=== PATIENT | male | born 1995 | race Caucasian/White ===

== ENCOUNTER 2020-01-21 11:14 | Emergency (ER) | payer OTHER ==
[~2020-01-21] VITALS: Ht 180.3 cm; Wt 90.7 kg
[~2020-01-21 11:14] MED LIST: CEPH500 PO; CRUTCH3 XX; HYDACE5 PO; Norco 10-325 T1 EACH PO; Norco 5-325 Ta1 EACH PO; Zofran Odt8 MG SL
== END 2020-01-21 13:08 | disposition home or self-care (01) ==
LOC: ER 11:14
DX: S90.31XA Contusion of right foot, initial encounter (principal); F17.220 Nicotine dependence, chewing tobacco, uncomplicated; X58.XXXA Exposure to other specified factors, initial encounter
CPT/HCPCS: 73630; 99283-25

== ENCOUNTER 2022-08-07 16:09 | Emergency (ER) | payer OTHER ==
[~2022-08-07] VITALS: Ht 182.9 cm; Wt 86.2 kg
[2022-08-07 16:55] LABS: BASOPHILS ABSOLUTE AUTO 0.11 K/mm3 (0.00-0.23); BASOPHILS PERCENT AUTO 1 % (0-2); EOSINOPHILS ABSOLUTE AUTO 0.65 K/mm3 (0.00-0.68); EOSINOPHILS PERCENT AUTO 5 % (0-6); Hematocrit 46.8 % (37.0-53.0); Hemoglobin 16.1 g/dL (13.5-17.5); IMMATURE GRAN ABSOLUTE AUTO 0.07 K/mm3 (0.00-0.10); IMMATURE GRAN PERCENT AUTO 1 % (0-1); LYMPHOCYTES ABSOLUTE AUTO 2.79 K/mm3 (0.84-5.20); LYMPHOCYTES PERCENT AUTO 23 % (21-46); MONOCYTES ABSOLUTE AUTO 1.12 K/mm3 (0.16-1.47); MONOCYTES PERCENT AUTO 9 % (4-13); Mean Corpuscular HGB 30.3 pg (26.0-34.0); Mean Corpuscular HGB Conc 34.4 g/dL (31.5-36.5); Mean Corpuscular Volume 88 fL (80-100); Mean Platelet Volume 9.3 fL (9.1-12.4); NEUTROPHILS ABSOLUTE AUTO 7.66 K/mm3 (1.96-9.15); NEUTROPHILS PERCENT AUTO 62 % (41-73); Platelet Count 254 K/mm3 (150-400); RDW Coefficient Variation 12.8 % (11.7-14.2); RDW Standard Deviation 41.5 fL (35.1-46.3); Red Blood Cell Count 5.31 M/mm3 (4.30-5.90)
[2022-08-07 17:25] LABS: Albumin, Blood 3.7 g/dL (3.4-5.0); Albumin/Globulin Ratio 1.2 (0.8-1.8); Bilirubin, Total 0.2 mg/dL (0.1-1.0); Bun/Creatinine Ratio 16.5 (12.0-20.0); Creatinine, Blood 0.79 mg/dL (0.60-1.20); Globulin, Blood 3.1 g/dL (2.2-4.0); Potassium, Blood 4.1 mmol/L (3.5-5.5); Total Protein, Blood 6.8 g/dL (6.4-8.2)
== END 2022-08-07 19:31 | disposition home or self-care (01) ==
LOC: ER 16:09
PROVIDERS: Physician Assistant
DX: R10.31 Right lower quadrant pain (principal); D72.829 Elevated white blood cell count, unspecified; F17.210 Nicotine dependence, cigarettes, uncomplicated; F17.220 Nicotine dependence, chewing tobacco, uncomplicated
CPT/HCPCS: 36415; 74177; 80053; 83690; 85025; Q9967

== ENCOUNTER 2023-11-13 05:25 | Emergency (ER) | payer OTHER ==
[~2023-11-13] VITALS: Ht 182.9 cm; Wt 81.7 kg
[2023-11-13 07:17] VITALS: BP 146/78
== END 2023-11-13 07:17 | disposition home or self-care (01) ==
LOC: ER 05:25
DX: S39.012A Strain of muscle, fascia and tendon of lower back, initial encounter (principal); F17.220 Nicotine dependence, chewing tobacco, uncomplicated; F17.200 Nicotine dependence, unspecified, uncomplicated; V47.5XXA Car driver injured in collision with fixed or stationary object in traffic accident, initial encounter; Y92.410 Unspecified street and highway as the place of occurrence of the external cause
CPT/HCPCS: 72100; 99283-25

== ENCOUNTER 2024-06-26 22:24 | Emergency (ER) | payer OTHER ==
[~2024-06-26] VITALS: Ht 182.9 cm; Wt 83.9 kg
[2024-06-26 22:50] LABS: BASOPHILS ABSOLUTE AUTO 0.11 K/mm3 (0.00-0.23); BASOPHILS PERCENT AUTO 1 % (0-2); EOSINOPHILS ABSOLUTE AUTO 0.51 K/mm3 (0.00-0.68); EOSINOPHILS PERCENT AUTO 4 % (0-6); Hematocrit 46.4 % (37.0-53.0); IMMATURE GRAN ABSOLUTE AUTO 0.03 K/mm3 (0.00-0.10); IMMATURE GRAN PERCENT AUTO 0 % (0-1); LYMPHOCYTES ABSOLUTE AUTO 3.24 K/mm3 (0.84-5.20); LYMPHOCYTES PERCENT AUTO 27 % (21-46); MONOCYTES ABSOLUTE AUTO 1.12 K/mm3 (0.16-1.47); MONOCYTES PERCENT AUTO 9 % (4-13); Mean Corpuscular HGB 29.7 pg (26.0-34.0); Mean Corpuscular HGB Conc 34.5 g/dL (31.5-36.5); Mean Corpuscular Volume 86 fL (80-100); Mean Platelet Volume 8.9 fL (9.1-12.4); NEUTROPHILS ABSOLUTE AUTO 6.99 K/mm3 (1.96-9.15); NEUTROPHILS PERCENT AUTO 58 % (41-73); Platelet Count 299 K/mm3 (150-400); RDW Coefficient Variation 12.7 % (11.7-14.2); RDW Standard Deviation 39.8 fL (35.1-46.3); Red Blood Cell Count 5.39 M/mm3 (4.30-5.90)
[2024-06-26 23:12] LABS: Albumin, Blood 3.8 g/dL (3.4-5.0); Albumin/Globulin Ratio 1.2 (0.8-1.8); Bilirubin, Total 0.7 mg/dL (0.1-1.0); Calcium, Blood 8.4 mg/dL (8.5-10.1); Creatinine, Blood 0.9 mg/dL (0.60-1.20); Globulin, Blood 3.1 g/dL (2.2-4.0); Potassium, Blood 3.9 mmol/L (3.5-5.5); Total Protein, Blood 6.9 g/dL (6.4-8.2)
[2024-06-27 02:00] VITALS: BP 127/81
[2024-06-27] MEDS ORDERED: NS 1,000 ML IV SCH (02:25)
[2024-06-27 03:22] LABS: Source, Urine Voided
[2024-06-27 03:35] LABS: Bilirubin, Urine Neg (Neg); Blood, Urine Neg (Neg); Glucose Qualitative, Urine Neg (Neg); Ketones, Urine Neg (Neg); Leukocyte Esterase, Urine 1+ (Neg); Nitrite, Urine Neg (Neg); Protein, Urine 1+ (Neg); Specific Gravity, Urine 1.015 (1.003-1.022); Urobilinogen, Urine 2+ (Normal); pH, Urine 6.5 (5.0-8.0)
[2024-06-27 03:46] LABS: Appearance, Urine Clear (Clear); Color, Urine Yellow (P-Yellow)
[2024-06-27 03:47] LABS: Bacteria Mod /hpf; Red Blood Cells, Urine 0-2 /hpf (0-2); Squamous Epithelial Cells Few /hpf (Few); White Blood Cells, Urine 0-2 /hpf (0-5)
== END 2024-06-27 03:55 | disposition home or self-care (01) ==
LOC: ER 22:24
PROVIDERS: Physician Assistant
DX: K40.90 Unilateral inguinal hernia, without obstruction or gangrene, not specified as recurrent (principal); F17.220 Nicotine dependence, chewing tobacco, uncomplicated
CPT/HCPCS: 76857; 80053; 81001; 85025; 87086; 99284-25; J7030

== ENCOUNTER 2024-07-22 14:55 | Observation (INO) | payer OTHER ==
[~2024-07-22] VITALS: Ht 180.3 cm; Wt 80.1 kg
[2024-07-22 15:28] LABS: BASOPHILS ABSOLUTE AUTO 0.16 K/mm3 (0.00-0.23); BASOPHILS PERCENT AUTO 1 % (0-2); EOSINOPHILS ABSOLUTE AUTO 0.63 K/mm3 (0.00-0.68); EOSINOPHILS PERCENT AUTO 5 % (0-6); Hematocrit 45.4 % (37.0-53.0); Hemoglobin 15.6 g/dL (13.5-17.5); IMMATURE GRAN ABSOLUTE AUTO 0.21 K/mm3 (0.00-0.10); IMMATURE GRAN PERCENT AUTO 2 % (0-1); LYMPHOCYTES ABSOLUTE AUTO 2.68 K/mm3 (0.84-5.20); LYMPHOCYTES PERCENT AUTO 22 % (21-46); MONOCYTES PERCENT AUTO 7 % (4-13); Mean Corpuscular HGB 30.3 pg (26.0-34.0); Mean Corpuscular HGB Conc 34.4 g/dL (31.5-36.5); Mean Corpuscular Volume 88 fL (80-100); Mean Platelet Volume 9.3 fL (9.1-12.4); NEUTROPHILS ABSOLUTE AUTO 7.59 K/mm3 (1.96-9.15); NEUTROPHILS PERCENT AUTO 62 % (41-73); Platelet Count 256 K/mm3 (150-400); RDW Coefficient Variation 12.9 % (11.7-14.2); RDW Standard Deviation 41.8 fL (35.1-46.3); Red Blood Cell Count 5.15 M/mm3 (4.30-5.90); White Blood Cell Count 12.17 K/mm3 (4.00-11.30)
[2024-07-22 15:45] LABS: Albumin, Blood 3.6 g/dL (3.4-5.0); Albumin/Globulin Ratio 1.1 (0.8-1.8); Bilirubin, Total 0.3 mg/dL (0.1-1.0); Bun/Creatinine Ratio 17.8 (12.0-20.0); Calcium, Blood 8.9 mg/dL (8.5-10.1); Creatinine, Blood 0.68 mg/dL (0.60-1.20); Globulin, Blood 3.4 g/dL (2.2-4.0); Potassium, Blood 3.8 mmol/L (3.5-5.5)
[2024-07-22 16:22] LABS: Source, Urine Clean Catch
[2024-07-22 16:25] LABS: Appearance, Urine Clear (Clear); Bilirubin, Urine Neg (Neg); Blood, Urine Neg (Neg); Color, Urine Yellow (P-Yellow); Glucose Qualitative, Urine Neg (Neg); Ketones, Urine Neg (Neg); Leukocyte Esterase, Urine Neg (Neg); Nitrite, Urine Neg (Neg); Protein, Urine Neg (Neg); Urobilinogen, Urine NORM (Normal)
[2024-07-22] MEDS ORDERED: Octreotide Acetate 50 MCG in NS 50 ML IV ONE (16:55)
[2024-07-22] MEDS ORDERED: OxyCODONE HCL 5 MG TAB PO PRN (20:05)
[2024-07-22] MEDS ORDERED: Ondansetron HCl 2 MG / ML 2ML Vial IV PRN (20:05)
[2024-07-22] MEDS ORDERED: Acetaminophen 325 MG TABLET PO PRN (20:10)
[2024-07-22] MEDS ORDERED: FLU VACC TS2024-25(6MOS UP)/PF 45 MCG/0.5 ML SYRINGE IM SCH (20:10)
[2024-07-22] MEDS ORDERED: Lactated Ringer's 1,000 ML IV SCH (21:00)
[2024-07-22] MEDS ORDERED: Docusate Sodium 100 MG Cap PO SCH (21:00)
[2024-07-22 21:54] VITALS: BP 139/84
[2024-07-22] MEDS ORDERED: Melatonin 5 MG Tablet PO PRN (22:20)
--- NOTE | 2024-07-22 23:17 | NUR ---
ARRIVAL TO UNIT TOA 0. REPORTS PAIN 5/10, RIGHT GROIN. A&OX4, ABLE TO VERBALIZE NEEDS, ORIENTED TO UNIT & INSTRUCTED TO CALL USING CALL LIGHT. DISC PLAN OF CARE. PT VOICED UNDERSTANDING, DENIES QUESTIONS/CONCERNS AT THIS TIME.
[2024-07-23] VITALS (18 sets, daily range): BP systolic 114–147; BP diastolic 70–96
--- NOTE | 2024-07-23 01:05 | NUR ---
BEHAVIOR NOTES UPON ARRIVAL TO UNIT, PT REFUSED GOWN D/T PREFERENCE. AGREED TO CHANGE INTO GOWN PRIOR TO SURGERY IN AM. PT ALSO REFUSING SCDS, OR ANY MEDICAL EQUIPMENT, STATES "I AM LIKE A RACEHORSE, HEALTHY. I DON'T NEED ANY OF IT". ALSO STATES, "IF THEY PUT MONITORS ON ME, JUST KNOW I WILL TAKE THEM RIGHT OFF". WHEN REVIEWING MEDICAL HISTORY, PT HOLDING LEFT KNEE, RUBBING WITH HANDS AND WINCING. PT STATES, "I THINK I HURT MY ACL AGAIN, BUT DON'T WRITE THAT DOWN, I JUST WANT TO GET MY HERNIA FIXED AND THAT IS IT". PT STATES HE INJURED ACL IN H[employer] S[employer], HAS BEEN CAUSING PAIN FOR 4-6MOS.
--- NOTE | 2024-07-23 03:37 | NUR ---
NONCOMPLIANCE 0320 PT IV PUMP, FLUIDS, TUBING, AND IV CATHETER FOUND IN HALLWAY OUTSIDE PT ROOM. PT SELF DC'D PIV. RN ASKED PT WHAT HAPPENED, PT RESPONDS "I HAD TO GET UP TO GO TO BATHROOM, AND I DIDN'T WAKE UP IN THE BEST MOOD AND THE THING WAS BOTHER ME AND PULLING SO I YANKED IT OUT AND THREW IT OUT OF THE ROOM. BUT IT'S OKAY, I'M NOT BLEEDING". UPON VISUAL INSPECTION, NO BLEEDING AT SITE. IV CATHETER INTACT HANGING FROM TUBING/PUMP. INFORMED PT THAT WE WILL NEED TO RE-ESTABLISH IV ACCESS FOR SURGERY PLANNED FOR TOMORROW, WELL MIVF OVERNIGHT PER MD ORDERS R/T NPO STATUS. PT REFUSED, ASKING TO SLEEP. THIS RN EDUCATED PT ON NEED FOR IV ACCESS RE: MIVF, IV MEDICATIONS, EMERGENCY MEDICATION ACCESS, SURGERY ACCESS. PT VOICED UNDERSTANDING, STATES "WELL YOU CAN TELL THE DOCTOR, I'M NOT FUCKING ASKING". THIS RN ASKED PT NOT TO CURSE WHEN SPEAKING WITH THIS RN. PT STATES, "SORRY, BUT I'M STILL NOT FUCKING ASKING". RADIOGRAPHIC TECHNOLOGIST MADE AWARE.
--- NOTE | 2024-07-23 04:02 | NUR ---
SHIFT SUMMARY HD#0 FOR R ING HERNIA. PLAN IS FOR OR 07/23/2024. PT PAIN MANAGED UTILIZING NPIS AND PER EMAR. NPO AT MIDNIGHT. PIV SELF DC'D BY PT AT 0320, SEE NURSE NOTE. PIV NOT RE-EST D/T PT REFUSED. PT NOT RECEPTIVE TO EDUCATION / EXPLANATION FOR PLAN OF CARE. PT STATES, "I'M JUST HERE FOR MY SURGERY I DON'T NEED THIS OTHER CRAP". PT A&OX4, ABLE TO VOICE NEEDS. INSTRUCTED TO USE CALL LIGHT.
[2024-07-23 05:36] LABS: BASOPHILS ABSOLUTE AUTO 0.13 K/mm3 (0.00-0.23); BASOPHILS PERCENT AUTO 1 % (0-2); EOSINOPHILS ABSOLUTE AUTO 0.74 K/mm3 (0.00-0.68); EOSINOPHILS PERCENT AUTO 6 % (0-6); Hematocrit 46.2 % (37.0-53.0); Hemoglobin 15.6 g/dL (13.5-17.5); IMMATURE GRAN ABSOLUTE AUTO 0.17 K/mm3 (0.00-0.10); IMMATURE GRAN PERCENT AUTO 1 % (0-1); LYMPHOCYTES ABSOLUTE AUTO 2.52 K/mm3 (0.84-5.20); LYMPHOCYTES PERCENT AUTO 19 % (21-46); MONOCYTES ABSOLUTE AUTO 0.85 K/mm3 (0.16-1.47); MONOCYTES PERCENT AUTO 7 % (4-13); Mean Corpuscular HGB 29.8 pg (26.0-34.0); Mean Corpuscular HGB Conc 33.8 g/dL (31.5-36.5); Mean Corpuscular Volume 88 fL (80-100); Mean Platelet Volume 9.5 fL (9.1-12.4); NEUTROPHILS ABSOLUTE AUTO 8.64 K/mm3 (1.96-9.15); NEUTROPHILS PERCENT AUTO 66 % (41-73); Platelet Count 261 K/mm3 (150-400); RDW Coefficient Variation 12.9 % (11.7-14.2); RDW Standard Deviation 42.1 fL (35.1-46.3); Red Blood Cell Count 5.24 M/mm3 (4.30-5.90); White Blood Cell Count 13.05 K/mm3 (4.00-11.30)
[2024-07-23 05:45] LABS: International Normalized Ratio 0.96; Prothrombin Time Results 10.3 Sec (9.7-11.5)
[2024-07-23 06:02] LABS: Albumin, Blood 3.4 g/dL (3.4-5.0); Albumin/Globulin Ratio 1.1 (0.8-1.8); Bilirubin, Total 0.6 mg/dL (0.1-1.0); Bun/Creatinine Ratio 17.6 (12.0-20.0); Creatinine, Blood 0.68 mg/dL (0.60-1.20); Globulin, Blood 3.1 g/dL (2.2-4.0); Potassium, Blood 4.2 mmol/L (3.5-5.5); Total Protein, Blood 6.5 g/dL (6.4-8.2)
--- NOTE | 2024-07-23 07:26 | NUR ---
DR TRIPP AT BEDSIDE FOR EVAL AND TO EXPLAIN SURGERY WITH PT. PLAN IS TO GO TO OR MID-DAY TODAY. PT KEPT NPO.
[2024-07-23] MEDS ORDERED: CeFAZolin Sodium 2,000 MG in NS 100 ML IV SCH (07:40)
--- NOTE | 2024-07-23 08:51 | NUR ---
NEW IV PLACED IN L FOREARM. PT INSTRUCTED IN PRE-OP CHLORAHEXADINE SHOWER AND IS DOING IT NOW. CALL LIGHT IN REACH. PT APPRECIATIVE OF CARE.
[2024-07-23] MEDS ORDERED: Lidocaine HCl 1% 5 ML SYR INJ ONE (12:35)
[2024-07-23] MEDS ORDERED: Midazolam HCl 1MG / ML 2ML Vial IV PRN (12:35)
[2024-07-23] MEDS ORDERED: FentaNYL Citrate 50 MCG/ML 2 ML Injection ONE (12:49)
[2024-07-23] MEDS ORDERED: propofoL 20 ML IV ONE (12:49)
[2024-07-23] MEDS ORDERED: Sugammadex Sodium 200 MG/2ML SDV (100 MG/ML) ONE (12:49)
[2024-07-23] MEDS ORDERED: Rocuronium Bromide 10 MG/ML 5ML Injection IV ONE ×3 (12:54→15:25)
[2024-07-23] MEDS ORDERED: Ondansetron HCl 2 MG / ML 2ML Vial ONE (12:54)
[2024-07-23] MEDS ORDERED: Dexamethasone Sod Phos 10 MG/ML 1ML VIAL ONE (12:54)
[2024-07-23] MEDS ORDERED: Ketorolac Tromethamine 30mg Vial ONE (12:54)
[2024-07-23] MEDS ORDERED: Lactated Ringer's 1,000 ML IV SCH (13:10)
--- NOTE | 2024-07-23 13:16 | NUR ---
PT TO OR AT THIS TIME.
--- NOTE | 2024-07-23 13:22 | NUR ---
History, Chart, Medications and Allergies reviewed before start of procedure. Patient confirms NPO status and agrees with scheduled surgery.
[2024-07-23] MEDS ORDERED: CeFAZolin Sodium 2,000 MG VIAL ONE (13:39)
[2024-07-23] MEDS ORDERED: Bupivacaine 0.5% HCl 5 MG/ML 30MLVIAL ONE (13:40)
[2024-07-23] MEDS ORDERED: HYDROmorphone HCl/Pf 1MG SYR ONE (14:23)
[2024-07-23] MEDS ORDERED: Morphine Sulfate 4 MG/1 ML Injection IV PRN (16:25)
--- NOTE | 2024-07-23 16:32 | NUR ---
POST OP NOTE PT BACK TO ROOM FROM PACU. STANDS AND TRANSFER FROM RNEY TO BED. PT ALERT, DENIES PAIN, BUT STS HE FEELS SOMEWHAT CONFUSED. PT RE-ORIENTED TO PLACE AND TIME. PT REQUESTING HIS FIANCE'S PRESENCE - CALLED AND VOICEMAIL LEFT. PACU NURSE REPORT'S PT WAS MOVING AROUND A LOT AND AGITATED AFTER SURGERY. PT STILL SOMEWHAT AGITATED, BUT IS REDIRECTABLE. PT EDUCATED ON FALL RISK. CALL LIGHT IN REACH. PT HAS 3X INCISION SITES FROM SURGERY AND APPEAR WNL. VITALS WNL.
[2024-07-23] MEDS ORDERED: OxyCODONE HCL 5 MG TAB PO PRN (18:05)
--- NOTE | 2024-07-23 18:20 | NUR ---
1755: PT NOT IN ROOM FOR ASSESSMENT. IV DISCONNECTED AND LEFT ON FLOOR. PT'S OWN BAG OF BELONGINGS STILL PRESENT IN ROOM. PT DID NOT NOTIFY STAFF THAT HE WAS WALKING AWAY FROM UNIT.
--- NOTE | 2024-07-23 18:22 | NUR ---
PT BACK TO ROOM. PT WAS TAKEN TO HIS CAR VIA WC BY HIS GIRLFRIEND AND SMOKED A CIGARETTE. PT IS NOTED TO BE PALE IN THE FACE AND DIAPHORETIC. PT STS "I MAY HAVE OVERDONE IT." VITALS TAKE AND ARE WNL. PT PROVIDED WITH EDUCATION TO NOT LEAVE W/O NOTIFY STAFF AND THE IMPORTANCE OF BEDREST AT THIS TIME. PT SEEMS TO BE APOLOGETIC AND UNDERSTANDING.
--- NOTE | 2024-07-23 21:14 | NUR ---
1999- CALLED TO THIS PTS ROOM BY S/O REPORTING PATIENT WANT TO LEAVE AMA. PT SITTING ON BED AND STATES "TAKE THIS FUCKING THING OUT BEFORE I RIP IT OUT" AND STATES HE WANTS TO LEAVE. WHEN ASKED WHAT HAD CHANGED OR HAPPENED - REFUSED TO TALK TO THIS RN AND JUST STATES "I WANT TO LEAVE" AND STATES "ITS BETWEEN ME AND MY LADY" AND WAS NOT WILLING TO DISCUSS WITH THIS RN. AMA FORM SIGNED, DISCUSSED RISK VS BENEFIT, AND PT LEFT WITH ALL BELONGINGS AFTER IV REMOVED BY THIS RN. NOTIFIED CLOTH PICKER MINE AND SHE REPORTS NOTIFYING ON-CALL PROVIDER MORA REDDY NP AND DR. NIETO.
== END 2024-07-23 20:50 | disposition left against medical advice (07) ==
LOC: ER 14:55 → ERHOLD 18:22 → SURS 18:22
PROVIDERS: Emergency Medicine; Surgery; ADMIT Student in an Organized Health Care Education/Training Program
PROC: 8E0W4CZ Robotic Assisted Procedure of Trunk Region, Percutaneous Endoscopic Approach (ICD-10-PCS; principal; 2024-07-23 13:00)
PROC: 0YU54JZ Supplement Right Inguinal Region with Synthetic Substitute, Percutaneous Endoscopic Approach (ICD-10-PCS; principal; 2024-07-23 13:00)
DX: K40.30 Unilateral inguinal hernia, with obstruction, without gangrene, not specified as recurrent (principal); Z87.891 Personal history of nicotine dependence
CPT/HCPCS: 36415; 74177; 80053; 81003; 83735; 85025; 85610; 96374; 96375; 99284-25; A9270; C1781; G0378; J0690; J1100; J1170; J1885; J2250; J2270; J2354; J2405; J2704; J3010; J7120; Q9967